=== PATIENT | female | born 1950 | race Two or more races ===

== ENCOUNTER 2022-04-15 21:48 | Emergency (ER) | payer MEDICARE, OTHER ==
[~2022-04-15] VITALS: Ht 157.5 cm; Wt 36.3 kg
[2022-04-15] MEDS ORDERED: CALCIUM CHLOR(10%) 100MG/ML 10ML SYRINGE IV ONE (21:49)
[2022-04-15] MEDS ORDERED: EPINEPHrine HCL 1 MG/10 ML SYRG IV ONE (21:49)
[2022-04-15 22:28] VITALS: BP 140/67
[2022-04-15 22:32] LABS: White Blood Cell 12.1 10^3/uL (4.4-10.8)
[2022-04-15 22:34] LABS: Mean Corpuscular Hemoglobin 19.9 pg (28.0-32.0); Mean Corpuscular Hgb Conc. 27.9 g/dL (32.0-36.0); Mean Corpuscular Volume 71.4 fL (80.0-100.0); Red Blood Cells 2.94 10^6/uL (4.0-5.20); Red Cell Distribution Width 19.6 % (11.8-14.3)
[2022-04-15 22:40] LABS: Hemoglobin 5.9 g/dL (12.2-16.2)
[2022-04-15 22:43] LABS: Basophils % (manual) 0 (0.0-2.0); Blast Cells 0; Eosinophils % (manual) 0 (0-7); Promyelocytes % 0; Reactive Lymphocytes 0
[2022-04-15 22:55] LABS: BUN/Creatinine Ratio 45.9; Potassium 5.1 mmol/L (3.5-5.1)
[2022-04-15 22:59] LABS: Band Neutrophils % (manual) 13; Lymphocytes % (manual) 25 (10.0-50.0); Metamyelocytes % 1; Monocytes % (manual) 3 (0-12); Myelocytes % 1
[2022-04-15 23:03] LABS: Bilirubin, Total 0.4 mg/dL (0.2-1.0); Total Protein 6.4 g/dL (6.4-8.2)
[2022-04-15 23:09] LABS: Lactic Acid w/Reflex 16.6 mmol/L (0.4-2.0)
[2022-04-15 23:15] VITALS: BP 43/18
== END 2022-04-15 23:35 ==
LOC: EDBD 21:48 → ER 21:48
DX: I46.9 Cardiac arrest, cause unspecified (principal); I12.0 Hypertensive chronic kidney disease with stage 5 chronic kidney disease or end stage renal disease; E11.22 Type 2 diabetes mellitus with diabetic chronic kidney disease; N18.6 End stage renal disease
CPT/HCPCS: 36415; 36600; 80053; 82805; 83605; 83880; 84484; 85007; 85027; 87070; 87077; 87186; 87205; 92950; 93005; 99291; J0171; 94002